=== PATIENT | female | born 1960 | race African-American/Black ===

== ENCOUNTER → 2019-05-08 | Outpatient (CLI) | payer BC ==
--- NOTE | 2019-05-09 15:15 | RAD ---
DATE: May 08, 2019 EXAM: DIGITAL SCREEN BILAT W/CAD HISTORY: Screening new baseline study. COMPARISON: None available. This study was interpreted with the benefit of Computerized Aided Detection (CAD). FINDINGS: Breast Density: FATTY The breast parenchyma is primarily fatty replaced. Breast parenchyma level density A.. There is a prominent anterior mass of the left breast just superior and lateral to the nipple which measures 14 mm in greatest dimension. No asymmetric breast masses is seen on the right side. No clustering of pleomorphic microcalcifications are evident on either side. IMPRESSION: Mass of the left breast. Sonography is recommended. BI-RADS CATEGORY: 0 INCOMPLETE: NEEDS ADDITIONAL IMAGING EVALUATION AND/OR PRIOR MAMMOGRAMS FOR COMPARISON. RECOMMENDED FOLLOW-UP: ADD ADDITIONAL IMAGING PQRS compliance statement: Patient information was entered into a reminder system with a target due date now for the next imaging study. Mammography is a sensitive method for finding small breast cancers, but it does not detect them all and is not a substitute for careful clinical examination. A negative mammogram does not negate a clinically suspicious finding and should not result in delay in biopsying a clinically suspicious abnormality. "Our facility is accredited by the [employer] Mammography Program." The patient's breast density may affect the ability of mammography to detect breast cancer. There are 4 categories of breast density, A, B, C and D. Breast density A means that most of the breast tissue is replaced with adipose tissue and therefore is not dense. Breast density B means that the breast tissue is mildly dense and scattered. Breast density C means that the breast tissue is heterogeneously dense. Breast density D means that the breast tissue is very dense. Breast densities especially C and D may decrease the sensitivity of mammography to detect breast cancer. Therefore, the patient may benefit from 3-D breast mammography (3D breast tomography) as a part of their screening mammogram. Insurance may or may not pay for this additional imaging. The patient's breast density based on today's mammogram is category A.
== END | disposition home or self-care (01) ==
LOC: MAMMO 15:19
PROVIDERS: ATTEND Physician Assistant
DX: Z12.31 Encounter for screening mammogram for malignant neoplasm of breast (principal); N63.20 Unspecified lump in the left breast, unspecified quadrant
CPT/HCPCS: 77067

== ENCOUNTER → 2019-05-18 | Outpatient (CLI) | payer BC ==
--- NOTE | 2019-05-18 18:25 | RAD ---
Examination: BREAST LEFT History: Abnormal mammogram Comparison/Correlation: 05/08/2019 screening mammogram Findings: Left breast ultrasound exam at 12:00 region was performed. There is a mildly complex cyst 2 cm from nipple measuring 1.4 cm x 1.3 cm 0.7 cm tall which corresponds with mammographic findings. No flow evident within it. It is well-circumscribed. Impression: BI-RADS Category 3 probably benign. Six-month follow-up ultrasound exam to assess stability is recommended. Electronically signed by: Eulalio Chester MD (05/18/2019 6:22 PM) [facility]
== END | disposition home or self-care (01) ==
LOC: US 12:58
PROVIDERS: ATTEND Physician Assistant
DX: N60.02 Solitary cyst of left breast (principal)
CPT/HCPCS: 76641